=== PATIENT | female | born 1995 | race Caucasian/White ===

== ENCOUNTER 2018-10-08 11:44 | Emergency (ER) | payer OTHER ==
[2018-10-08] MEDS ORDERED: Lactated Ringer's 1,000 ML IV ONE ×2 (12:51→14:07)
[2018-10-08 14:03] LABS: URINE BILIRUBIN NEGATIVE (NEGATIVE); URINE BLOOD NEGATIVE (NEGATIVE); URINE CLARITY SLIGHTY-CLOUDY (Clear); URINE COLOR YELLOW (YELLOW); URINE GLUCOSE (UA) NEG (Normal); URINE LEUKOCYTE ESTERASE NEG Leu/uL (Negative); URINE PROTEIN NEGATIVE (NEGATIVE); URINE UROBILINOGEN 0.2-1.0 mg/dL (0.2-1.0)
--- NOTE | 2018-10-08 16:57 | OBHP ---
Datetime: 10/08/2018 12:55 IP Adm Impression: Term, intrauterine IP Admit Plan: Observation/Evaluation; Discharge home Admit Comment, IP Provider: 22 y/o at 37 wks w/CARLA 10/29/2018 is c/o pelvic pain since 11pm last night. Pain 04/29, and reports calling her PNP who advised her to come to ED. She also endorses u rinary frequency, +FM _ denied vb or loss of fluid. Denied f/c/n/v/diarrhea, chest pain or difficulty breathingPNP: Dr. Julia Duke OBGYNhx: induced x2, 2015, 2016; miscarriage-11/2017 PMH: asthma (not on meds >10yrs) Meds: PNV Allergies: NKA Surghx: denied Famhx: maternal/paternal grandma with DM, HTN, no famhx of cancer Sochx: x-marijuana user- last used when she found out she was ; denies EtOH, cigarette or elicit drug use ROS: All systems reviewed _ neg unless othwerwise mentioned in HPI Gen: sitting upright in bed, breathing comfortably Cardio: s1s2, RRR Lungs: cta b/l Abd: Gravid, BS+, nontender Pelvic: 1, 70%, -3 Ext: nontender, nonedematous A/P: 22 y/o at 37 wks w/CARLA 10/29/2018 is c/o pelvic pain _ urinary frequency. -Send UA _ culture; If wnl, discharge home -Continue FHR monitor Patient seen and examined with KENISHA Brian JP, PGY-1 OB HOspitalist Addendum: Pt seen and examined by me. Agree w/ above. 22 yo at 37 wks w/ pelvic and back pain since 11:30 pm last night. VE 1/70/-3 at 12:45 pm. Pt given IVF. Ua neg and urine cx pending. VE unchanged at 4:45 pm. Pt discharged home w/ labor precautions and has an appoin t w/ OB on Wed., 10/10/2018. (ES) Extremities - PN: Normal Abdomen - PN: Normal Lungs - PN: Normal Heart - PN: Normal General - PN: Normal FHR - Baseline A Provider: 145 Membranes, Provider: Intact Contraction Comments Provider: irreg Gestation - Est Wks by US: 37.0 Pool Provider: Negative IP Hx Assessment: The History has been Reviewed and is Current EGA AdmitDate IP: 37.0 Vital Signs Provider: Reviewed IP Chief Complaint: Uterine contractions; Maternal discomfort NICHD Variability Prov Fetus A: Moderate 6-25bpm NICHD Accel Fetus A IP Provider: [id number] FHR Category Provider Fetus A: Category I NICHD Decel Fetus A IP Provider: None Dilatation, Provider: 1 Effacement, Provider: 70 Station, Provider: -3
--- NOTE | 2018-10-08 16:57 | OBDCSUM ---
Datetime: 10/08/2018 16:47 Discharged to, Provider: Home Follow up at, Provider: [facility] Disch Instr Activity: Normal activity Disch Instr Diet: Regular Discharge Diagnosis, Provider: False Labor - Undelivered Discharge Time: 10/08/2018 16:52 Follow up in weeks, Provider: Sep Ronn Mejía Disch Referrals: None Disch Activity Restrictions: No exercising; No lifting; No driving; Minimize walking; Minimize stair -climbing; No sexual activity; Nothing in vagina - [place], tampons, douche
[2018-10-09 00:13] VITALS: BMI 23.3
[2018-10-09 01:34] VITALS: BP 122/84; PULSE 89; RESP 18; TEMP 98.2; O2SAT 100
== END 2018-10-08 15:30 | disposition home or self-care (01) ==
LOC: H.EROB2 11:44
DX: O26.93 Pregnancy related conditions, unspecified, third trimester (principal); R10.2 Pelvic and perineal pain; R35.0 Frequency of micturition; Z3A.37 37 weeks gestation of pregnancy
CPT/HCPCS: 81003; 87086; 99283; J7120

== ENCOUNTER 2018-10-19 08:45 | Emergency (ER) | payer OTHER ==
[2018-10-19 09:45] VITALS: BMI 24.1
[2018-10-19 16:28] VITALS: BP 111/80; PULSE 93; O2SAT 100
== END 2018-10-19 11:45 | disposition home or self-care (01) ==
LOC: H.EROB2 08:45 → H.L&D 09:05 → H.EROB2 11:45
DX: O26.93 Pregnancy related conditions, unspecified, third trimester (principal); R10.2 Pelvic and perineal pain; Z3A.38 38 weeks gestation of pregnancy; O47.1 False labor at or after 37 completed weeks of gestation

== ENCOUNTER 2018-10-21 19:40 | Emergency (ER) | payer OTHER ==
--- NOTE | 2018-10-21 20:31 | OBHP ---
Datetime: 10/21/2018 20:26 IP Adm Impression: Term, intrauterine ; No Active Labor; Intact Membranes IP Admit Plan: Observation/Evaluation; Discharge home Admit Comment, IP Provider: Patient is 22-year-old 3 para 0 estimated due date 1210 estimate d gestational age 39 weeks patient presents to labor and delivery complaining of losing her mucous pl ug. Patient denies leaking fluid she reports good movement care unremarkable. Past medical history asthma Medications albuterol and vitamins Past surgical history termination of 2 Social history denies alcohol tobacco use Review of systems patient denies headache chest pain shortness of breath palpitations nausea vomit ing diarrhea heat or cold intolerance easy bruisability musculoskeletal or neurological complaints Intrauterine at 39 weeks Late in labor Observation Sonogram vertex presentation TARA adequate Discharge home with labor precautions patient to follow-up with Ronn Mejía on 12 Pelvic Type - PN: Adequate Extremities - PN: Normal Abdomen - PN: Normal Back - PN: Normal Breast - PN: Not Done Lungs - PN: Normal Heart - PN: Normal Thyroid - PN: Not Done Neurologic - PN: Normal HEENT - PN: Normal General - PN: Normal Presentation-Admit: Vertex Gestation - Est Wks by US: 38.0 Pool Provider: Negative EGA AdmitDate IP: 38.6 Vital Signs Provider: Reviewed IP Chief Complaint: Uterine contractions FHR Category Provider Fetus A: Category I NICHD Decel Fetus A IP Provider: None Dilatation, Provider: 1 Effacement, Provider: 50 Station, Provider: -2 Genitourinary Exam: Normal DTRs - PN: Normal Datetime: 10/19/2018 10:04 FHR - Baseline A Provider: 150 Membranes, Provider: Intact Contraction Comments Provider: Q4-5 min NICHD Variability Prov Fetus A: Moderate 6-25bpm NICHD Accel Fetus A IP Provider: [id number]
== END 2018-10-21 21:15 | disposition home or self-care (01) ==
LOC: H.EROB2 19:40
DX: O34.63 Maternal care for abnormality of vagina, third trimester (principal); N89.8 Other specified noninflammatory disorders of vagina; Z3A.39 39 weeks gestation of pregnancy